=== PATIENT | male | born 2000 | race African-American/Black ===

== ENCOUNTER 2018-03-01 10:01 | Day surgery (SDC) | payer MEDICAID ==
[~2018-03-01 10:01] MED LIST: PROPOFOL INJ 200 MG/20 ML VIAL IV ONE
[2018-03-01] MEDS ORDERED: MIDAZOLAM HCL SYRUP 10 MG/5 ML UDC ONE (10:56)
[2018-03-01] MEDS ORDERED: MIDAZOLAM HCL SYRUP 10 MG/5 ML UDC PO ONE (11:00)
[2018-03-01] MEDS ORDERED: PROPOFOL INJ 200 MG/20 ML VIAL IV ONE ×4 (12:10→13:48)
[2018-03-01] MEDS ORDERED: MIDAZOLAM 2 MG/2 ML INJ ONE (13:15)
[2018-03-01] MEDS ORDERED: FENTANYL CITRATE INJ/PF 100 MCG/2 ML AMPUL ONE (13:15)
--- NOTE | 2018-03-01 13:55 | Operative Report ---
Operative Report DATE OF SURGERY: 03/01/18 Operative Report: The risks, benefits and alternatives of the procedure including the risk of bleeding, perforation requiring surgery are explained to the patient in detail and informed consent is obtained. Patient is brought back to the endoscopy suite and placed in a left, lateral decubital position. Timeout was called. Propofol medication is administered. Rectal examination is done which did not reveal any masses, tears or fissures. An Olympus videoscope was introduced into the patient's rectum. Prep is not good. The patient has a redundant colon. The scope was attempted to be advanced all the way to the cecum unfortunately the normal anatomical landmarks of the ileocecal valve for the appendiceal orifice could not be identified. I suspect that I was more in the ascending colon. The prep also does not lend itself to being able to complete the colonoscopy. The scope was then sequentially pulled back through the segments that could have been visually examined. No masses or obstruction is noted. Retroflexion does reveal some internal hemorrhoids. PREOPERATIVE DIAGNOSIS: Change of bowel habits POSTOPERATIVE DIAGNOSIS: Incomplete colonoscopy. Poor prep. Redundant colon. Random biopsies obtained. Internal hemorrhoids. Extended procedure greater than 1 hour OPERATION: Colonoscopy with biopsy SURGEON: JACOBY MOSHER ANESTHESIA: LMAC TISSUE REMOVED OR ALTERED: As noted above. COMPLICATIONS: None. ESTIMATED BLOOD LOSS: None. INTRAOPERATIVE FINDINGS: As noted above. PROCEDURE: Patient tolerated the procedure well No immediate postprocedure complications are noted. Patient is discharged in good condition. Discharge date 03/01/2018. Discharge diet: Regular. Discharge activity: Regular. 2-3-week follow-up to discuss findings. Patient is instructed to call the office or proceed to the emergency room should there be any further proximal questions. wait on the pathology.
[2018-03-01 14:02] VITALS: BP 152/98
== END 2018-03-01 13:50 | disposition home health service (06) ==
LOC: END 10:01
PROVIDERS: ATTEND Internal Medicine Gastroenterology
DX: R19.4 Change in bowel habit (principal)
CPT/HCPCS: 45380; 88305 ×2; J2250; J3010; J2704; 811